=== PATIENT | male | born 1950 | race Caucasian/White ===

== ENCOUNTER → 2016-12-20 16:22 | Outpatient (CLI) | payer MEDICARE | END | disposition home or self-care (01) | LOC: D.CT 16:22 | DX: R10.9 Unspecified abdominal pain (principal); K72.90 Hepatic failure, unspecified without coma ==

== ENCOUNTER 2016-12-25 14:18 | Day surgery (SDC) | payer MEDICARE ==
[~2016-12-25] VITALS: Ht 177.8 cm; Wt 72.7 kg
--- NOTE | ~2016-12-25 | OP ---
PATIENT NAME: ANNEMARIE PIMENTEL MEDICAL RECORD: [id number] :51 LOCATION:[facility] ADMISSION DATE: SURGEON: TE WILKINS DO DATE OF OPERATION: 12/25/2016 PROCEDURE: ERCP with sphincterotomy and plastic stent placement. SCOPE: AirXP video side-viewing duodenoscope. MEDICATIONS: General anesthesia with propofol given per anesthesia. The patient also received 1 gram of ancef prior to sphincterotomy and 2 units of FFP for an elevated INR of 2.1. ESTIMATED BLOOD LOSS: Minimal. COMPLICATIONS: None. DESCRIPTION OF PROCEDURE: The patient was started under general anesthesia and intubated. He was placed in a prone position. The endoscope was advanced under direct visualization through the mouth to the second portion of the duodenum where the ampulla was identified. Deep biliary cannulation was achieved with ease. Initial cholangiogram revealed a dilated duct involving the proximal half of the common bile duct. The duct was approximately 18 mm or greater in diameter. There was a filling defect, which was felt to be related to the heterogenous pancreatic mass seen on recent imaging involving the distal bile duct. It spanned a segment of approximately 2-3 cm in length. Because of the patient's elevated INR, there was no dilatation balloon used, and no biliary brushings were obtained. A small sphincterotomy was performed using ____ cut. There was some oozing of blood, but no significant bleeding. After this, a 10-Hungarian x 7 cm straight plastic stent was placed in the common bile duct with the proximal part of the stent within the bile duct above the obstruction and the distal portion of the stent in the duodenum. The scope was then withdrawn from the patient. The patient tolerated the procedure well and there were no complications. IMPRESSION: Biliary obstruction secondary to heterogenous pancreas mass, suspicious for pancreatic adenocarcinoma. PLAN AND RECOMMENDATIONS: 1. Proceed with percutaneous biopsy as planned. 2. Consider ultrasound-guided paracentesis with fluid sent for cytology. If this was positive, this would confirm stage IV disease and could provide the diagnosis potentially. 3. Pending plans for the future, this plastic stent will need to be removed or replaced within 3 months, and preferably by 2 months. Consideration should be given to placing a metallic stent for permanent placement and stenting of the bile duct. If another ERCP is planned, an INR should be checked the day prior to the procedure, so that FFP and vitamin K could be given if indicated. TRANSINT:[id number] Voice Confirmation ID: [id number] DOCUMENT ID: [id number] OPERATIVE REPORT [id number] ANNEMARIE PIMENTEL NATHAN A DO CC: [id number] DICTATION DATE: 12/25/161745 GUARD CAPTAIN: 12/26/164 [facility] 12/25/16 [place] [id number] [place] [id number]
[2016-12-25 14:36] LABS: BASOPHILS 0.5 % (0-2); EOSINOPHILS 1.4 % (0-7); HEMATOCRIT 39.4 % (42.0-54.0); IMMATURE GRANULOCYTES 1.1 % (0-5); LYMPHOCYTES 10.4 % (15-50); MCH 33.2 pg (26.0-34.0); MCHC 35.5 g/dL (31.0-37.0); MCV 93.4 fL (80.0-100.0); MEAN PLATELET VOLUME 11.2 fL (7.4-10.4); MONOCYTES 9.1 % (2-11); NEUTROPHILS 77.5 % (40-80); PLATELET COUNT 183 10x3/uL (130-400); RBC 4.22 10x6/uL (4.20-6.10); RDW 21.9 % (11.5-14.5); WBC 9.2 10x3/uL (4.8-10.8)
[2016-12-25 14:47] LABS: INR 2.09 (0.85-1.17); PROTIME 23.6 SECONDS (11.6-15.0)
[2016-12-25 15:02] LABS: ALBUMIN 2.2 g/dL (3.4-5.0); ALKALINE PHOSPHATASE 260 U/L (46-116); ALT (SGPT) 98 U/L (10-68); CALC OSMOLALITY 285 mosm/kg (275-300); CALCIUM 9.1 mg/dL (8.5-10.1); CARBON DIOXIDE 25.2 mmol/L (21.0-32.0); CHLORIDE - SERUM 107 mmol/L (98-107); CREATININE - SERUM 0.8 mg/dL (0.6-1.3); GLUCOSE 83 mg/dL (74-106); POTASSIUM - SERUM 3.6 mmol/L (3.5-5.1); SODIUM 144 mmol/L (136-145); UREA NITROGEN 12 mg/dL (7-18); eGFR NON AFRICAN AMERICAN > 90 mL/min (90-120)
[2016-12-25 15:07] LABS: BILIRUBIN - TOTAL 35.02 mg/dL (0.2-1.3); PROTEIN - SERUM 5.9 g/dL (6.4-8.2)
[2016-12-25] MEDS ORDERED: K-TAB10 MEQ PO (15:22)
[2016-12-25] MEDS ORDERED: HUMULIN 70100 UNIT/1 SC (15:23)
[2016-12-25] MEDS ORDERED: TEMOVATE 0.05%15 G1 TOPICAL (15:24)
[2016-12-25 15:33] VITALS: BP 115/63; Ht 177.8 cm; Wt 72.7 kg
--- NOTE | 2016-12-25 17:19 | NUR ---
1615 BLOOD CONSENT OBTAINED EXPLAINED RWEASON FOR FFP INR ELEVATED SND EXPLAINED S/S OF BLOOD REctions noted.iv atarted in lt arm 20mgauge no redness or selling. ancef started 1620.
--- NOTE | 2016-12-25 17:41 | NUR ---
1708 FFP CHECKED BY 2 NURSES AND INFUSING VIA LEFT ARM NO REDNESS OR SWELLING.
--- NOTE | 2016-12-25 17:41 | NUR ---
1723 1ST UNIT OF FFP COMPLETED. NO REDNESS OR SWELLING.
--- NOTE | 2016-12-25 17:42 | NUR ---
173 2ND UNIT OF FFP STARTRED LEFT ARM NO REDNESS OR SWELLING.
--- NOTE | 2016-12-25 17:42 | NUR ---
8660 10 BY 7 STENT APPLIED.
--- NOTE | 2016-12-25 18:40 | NUR ---
1750 PT INTUBATED AND TO RECOVERY FFP INFUSING NO S/S OF BLOOD REACTIONS. IV LEFT ARM NO RENESS OR SWELLING.
== END 2016-12-25 19:50 | disposition home or self-care (01) ==
LOC: D.OPS 14:18
PROVIDERS: Internal Medicine Gastroenterology
DX: K86.89 Other specified diseases of pancreas (principal); K83.1 Obstruction of bile duct

== ENCOUNTER 2017-01-01 06:26 | Outpatient (CLI) | payer MEDICARE ==
[~2017-01-01] VITALS: Ht 177.8 cm; Wt 72.7 kg
[~2017-01-01 06:26] MED LIST: HUMULIN 70100 UNIT/1 SC; K-TAB10 MEQ PO; TEMOVATE 0.05%15 G1 TOPICAL
[2017-01-01 07:12] VITALS: BP 117/61; Ht 177.8 cm; Wt 72.7 kg
[2017-01-01 07:30] LABS: APTT 40.5 SECONDS (22.8-39.4); INR 1.46 (0.85-1.17); PROTIME 17.6 SECONDS (11.6-15.0)
[2017-01-01 07:31] LABS: CALC OSMOLALITY 279 mosm/kg (275-300); CALCIUM 8.3 mg/dL (8.5-10.1); CARBON DIOXIDE 22.5 mmol/L (21.0-32.0); CHLORIDE - SERUM 108 mmol/L (98-107); CREATININE - SERUM 0.7 mg/dL (0.6-1.3); POTASSIUM - SERUM 3.3 mmol/L (3.5-5.1); SODIUM 139 mmol/L (136-145); UREA NITROGEN 12 mg/dL (7-18); eGFR NON AFRICAN AMERICAN > 90 mL/min (90-120)
[2017-01-01 07:36] LABS: BASOPHILS 0.2 % (0-2); HEMATOCRIT 33.2 % (42.0-54.0); HEMOGLOBIN 11.4 g/dL (13.5-17.5); IMMATURE GRANULOCYTES 0.7 % (0-5); LYMPHOCYTES 9.9 % (15-50); MCH 33.6 pg (26.0-34.0); MCHC 34.3 g/dL (31.0-37.0); MCV 97.9 fL (80.0-100.0); MONOCYTES 8.7 % (2-11); NEUTROPHILS 79.5 % (40-80); RBC 3.39 10x6/uL (4.20-6.10); RDW 21.2 % (11.5-14.5)
[2017-01-01 07:37] LABS: GLUCOSE 133 mg/dL (74-106)
[2017-01-01 07:38] LABS: PLATELET COUNT 144 10x3/uL (130-400)
--- NOTE | 2017-01-01 11:26 | NUR ---
1100--ALL VITAL SIGNS CHARTED ON POST PROCEDURE VITAL SIGN SHEET ON CHART. CONSTANCE HIGGINBOTHAM
--- NOTE | 2017-01-01 17:14 | NUR ---
1400--IV DC'D, PT UP TO DRESS. CONSTANCE HIGGINBOTHAM 8224--DISCHARGE INSTRUCTIONS GIVEN, PT VERBALIZES UNDERSTANDING. PT OFF UNIT VIA WC. CONSTANCE HIGGINBOTHAM
== END 2017-01-01 14:30 | disposition home or self-care (01) ==
LOC: D.OPS 06:26 → D.RAD 09:00 → D.OPS 09:00
PROVIDERS: Radiology Diagnostic Radiology
DX: K86.89 Other specified diseases of pancreas (principal)

== ENCOUNTER → 2017-01-15 07:32 | Outpatient (CLI) | payer MEDICARE, MEDICAID ==
[2017-01-01 07:12] VITALS: BMI 23.0
== END | disposition home or self-care (01) ==
LOC: D.LAB 07:32
DX: R63.4 Abnormal weight loss (principal)

== ENCOUNTER → 2017-02-25 08:27 | Outpatient (CLI) | payer MEDICARE, MEDICAID ==
[2017-01-01 07:12] VITALS: BMI 23.0
[2017-02-25 09:12] LABS: INR 1.14 (0.85-1.17); PROTIME 14.5 SECONDS (11.6-15.0)
[2017-02-26 07:26] LABS: HEPATITIS C ANTIBODY >11.0 (0.0-0.9)
== END | disposition home or self-care (01) ==
LOC: D.LAB 08:00
PROVIDERS: Internal Medicine Gastroenterology
DX: K74.60 Unspecified cirrhosis of liver (principal)

== ENCOUNTER 2017-02-26 12:43 | Day surgery (SDC) | payer MEDICARE, MEDICAID ==
[~2017-02-26] VITALS: Ht 177.8 cm; Wt 70.5 kg
[2017-02-26 13:19] LABS: HEMATOCRIT 42.4 % (42.0-54.0); HEMOGLOBIN 14.4 g/dL (13.5-17.5); MCH 34.4 pg (26.0-34.0); MCV 101.2 fL (80.0-100.0); MEAN PLATELET VOLUME 10.2 fL (7.4-10.4); RBC 4.19 10x6/uL (4.20-6.10); RDW 12.5 % (11.5-14.5); WBC 6.3 10x3/uL (4.8-10.8)
[2017-02-26 13:28] VITALS: BP 119/70; Ht 177.8 cm; Wt 70.5 kg
--- NOTE | 2017-02-26 15:32 | NUR ---
ASKED ABOUT ANTIBIOTICS STATED NOT NEEDED.
--- NOTE | 2017-02-26 16:15 | NUR ---
10F X7 STENT REMOVED AND REPLACED, DYE 28 MLS AND 1.20 SEC XRAY TIME.
--- NOTE | 2017-02-26 16:25 | NUR ---
1622 BACK FROM ERCP STENT EXCHANGED. ALERT AND VERBALLY RESPONSIVE. RESP NONLABORED AND V/S STABLE.
--- NOTE | 2017-02-26 16:57 | NUR ---
1652 TOLERAYING FULL LIQUIDS.
--- NOTE | 2017-02-26 17:23 | NUR ---
1721 DR. WILKINS TALKING TO PATIENT. WENT OVER DISCHARGE INSTRUCTIONS. IV DCD CATHETER INTACT.
--- NOTE | 2017-02-26 17:23 | NUR ---
1725 TO HOME VIA W/C WITH FAMILY,
--- NOTE | 2017-02-27 13:06 | OP ---
PATIENT NAME: ANNEMARIE PIMENTEL MEDICAL RECORD: [id number] :51 LOCATION:[facility] ADMISSION DATE: SURGEON: TE WILKINS DO OPERATION DATE: 02/26/17 DATE OF OPERATION: 02/26/2017 PROCEDURE: ERCP with stent exchange. INDICATIONS FOR PROCEDURE: The patient has a fibrotic mass within his pancreas which is causing him biliary obstruction. This was a procedure to exchange his straight plastic stent which is allowing flow of bile to the common bile duct. SCOPE: Cloudadmin video side-viewing duodenoscope. MEDICATIONS: Propofol IV per anesthesia. Please see anesthesia report for exact medications. ESTIMATED BLOOD LOSS: Less than 2 mL. COMPLICATIONS: None. FINDINGS: Informed consent was given. The patient was made comfortable with the above medication. After reaching an adequate level of sedation by slow IV push, the patient was placed semi prone on the fluoroscopy stable. A side-viewing duodenoscope was then placed under direct visualization through the mouth and advanced to the second portion of the duodenum where the ampulla with the previously placed stent was identified. 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 A snare was placed around the stent and the stent was pulled out of the duct and removed through the mouth with the scope. The scope was then advanced back down through the mouth under direct visualization to the second portion of the duodenum where the ampulla was identified again. A sphincterotome was used to gain access to the common bile duct. Again, there was a stricture related to the patient's fibrotic mass within his pancreas which spanned approximately 2-3 cm in length. It did make passage of the sphincterotome and guidewire somewhat difficult, but deep biliary cannulation and catheter passage was achieved after approximately 10 minutes of time. Once the guidewire was in place the sphincterotome was removed and a 10 Guamanian x 7 cm straight plastic stent was placed over the guidewire and into the common bile duct. The proximal part of the stent is above the fibrotic mass stricture and the distal stent is within the duodenum. The scope was withdrawn from the patient. The patient tolerated the procedure well and there were no complications. IMPRESSION: 1. Fibrotic mass within the head of the pancreas causing biliary obstruction. PLAN AND RECOMMENDATIONS: 1. Discharge home when recovery parameters are met. 2. The patient is scheduled with Dr. Quintero at [facility] for endoscopic ultrasound evaluation and repeat biopsies if indicated. 3. A decision will have to be made in the near future regarding course of action to deal with this fibrotic mass. 4. Options include repeated ERCPs for plastic stent replacement versus OPERATIVE REPORT [id number] ANNEMARIE PIMENTEL permanent metal stent placement versus possibly a pancreaticoduodenectomy for definitive therapy of this condition. We will await findings at time of endoscopic ultrasound for further planning. TRANSINT:[id number] Voice Confirmation ID: [id number] DOCUMENT ID: [id number] TE WILKINS DO at 1306 CC: [id number] DICTATION DATE: 02/26/17 1624 DAY CARE AIDE: 02/27/17 0029 [facility] 02/26/17 [place] [id number] [place] [address]
== END 2017-02-26 17:24 | disposition home or self-care (01) ==
LOC: D.OPS 12:43
PROVIDERS: Anesthesiology
DX: K86.89 Other specified diseases of pancreas (principal); Z01.812 Encounter for preprocedural laboratory examination; K83.1 Obstruction of bile duct

== ENCOUNTER → 2017-03-06 07:23 | Outpatient (CLI) | payer MEDICARE, MEDICAID ==
[2017-02-26 13:28] VITALS: BMI 22.2
== END ==
LOC: D.LAB 07:17
PROVIDERS: Internal Medicine Gastroenterology
DX: R79.9 Abnormal finding of blood chemistry, unspecified (principal)

== ENCOUNTER 2017-05-22 11:33 | Emergency (ER) | payer MEDICARE, MEDICAID ==
[2017-02-26 13:28] VITALS: BMI 22.2
[2017-05-22 12:46] LABS: BASOPHILS 0.3 % (0-2); EOSINOPHILS 1.9 % (0-7); HEMATOCRIT 35.2 % (42.0-54.0); HEMOGLOBIN 11.7 g/dL (13.5-17.5); IMMATURE GRANULOCYTES 0.4 % (0-5); LYMPHOCYTES 10.6 % (15-50); MCH 31.7 pg (26.0-34.0); MCHC 33.2 g/dL (31.0-37.0); MCV 95.4 fL (80.0-100.0); MEAN PLATELET VOLUME 9.8 fL (7.4-10.4); NEUTROPHILS 78.8 % (40-80); PLATELET COUNT 121 10x3/uL (130-400); RBC 3.69 10x6/uL (4.20-6.10); RDW 13.3 % (11.5-14.5); WBC 7.9 10x3/uL (4.8-10.8)
[2017-05-22 12:52] LABS: ALBUMIN 2.9 g/dL (3.4-5.0); ALKALINE PHOSPHATASE 76 U/L (46-116); ALT (SGPT) 22 U/L (10-68); BILIRUBIN - TOTAL 1.49 mg/dL (0.2-1.3); CALC OSMOLALITY 282 mosm/kg (275-300); CALCIUM 8.8 mg/dL (8.5-10.1); CARBON DIOXIDE 26.6 mmol/L (21.0-32.0); CHLORIDE - SERUM 103 mmol/L (98-107); CREATININE - SERUM 0.8 mg/dL (0.6-1.3); GLUCOSE 160 mg/dL (74-106); POTASSIUM - SERUM 3.8 mmol/L (3.5-5.1); PROTEIN - SERUM 6.9 g/dL (6.4-8.2); SODIUM 139 mmol/L (136-145); UREA NITROGEN 17 mg/dL (7-18); eGFR NON AFRICAN AMERICAN > 90 mL/min (90-120)
[2017-05-22 12:54] LABS: AMYLASE - SERUM 23 U/L (25-115); CREATINE KINASE 54 UL (21-232)
[2017-05-22 13:02] LABS: LIPASE 43 U/L (73-393); TROPONIN-I < 0.017 ng/mL (0.000-0.060)
[2017-05-29] MEDS ORDERED: MORPHINE SULFAT15 M4 PO (16:26)
[2017-05-29] MEDS ORDERED: NOVOLIN 70/30 110 ML SC (16:26)
[2017-05-29] MEDS ORDERED: PROTONIX40 MG PO (16:26)
== END 2017-05-22 14:03 | disposition home or self-care (01) ==
LOC: D.ER 11:33
PROVIDERS: Emergency Medicine
DX: K29.00 Acute gastritis without bleeding (principal)

== ENCOUNTER → 2017-05-28 14:26 | Outpatient (CLI) | payer MEDICARE, MEDICAID ==
[2017-02-26 13:28] VITALS: BMI 22.2
[~2017-05-28 14:26] MED LIST changes: +CREON DR 24,001 EACH PO; +DILAUDID2 MG PO; +MORPHINE SULFAT15 M4 PO; +MORPHINE SULFAT30 M4 PO; +NOVOLIN 70/30 110 ML SC; +OXYCODONE HCL5 MG PO; +PROTONIX40 MG PO; +THORAZINE25 MG PO
== END | disposition home or self-care (01) ==
LOC: D.LAB 14:26
DX: C25.9 Malignant neoplasm of pancreas, unspecified (principal)

== ENCOUNTER 2017-06-02 07:55 | Day surgery (SDC) | payer MEDICARE, MEDICAID ==
[~2017-06-02 07:55] MED LIST changes: -CREON DR 24,001 EACH PO; -DILAUDID2 MG PO; -MORPHINE SULFAT30 M4 PO; -OXYCODONE HCL5 MG PO; -THORAZINE25 MG PO
[2017-06-02 08:31] LABS: BASOPHILS 0.4 % (0-2); EOSINOPHILS 1.4 % (0-7); HEMATOCRIT 37.9 % (42.0-54.0); HEMOGLOBIN 12.5 g/dL (13.5-17.5); IMMATURE GRANULOCYTES 0.2 % (0-5); LYMPHOCYTES 8.2 % (15-50); MCH 32.2 pg (26.0-34.0); MCV 97.7 fL (80.0-100.0); MEAN PLATELET VOLUME 10.3 fL (7.4-10.4); MONOCYTES 9.1 % (2-11); NEUTROPHILS 80.7 % (40-80); RBC 3.88 10x6/uL (4.20-6.10); RDW 14.4 % (11.5-14.5); WBC 5.7 10x3/uL (4.8-10.8)
[2017-06-02 08:45] LABS: PLATELET COUNT 148 10x3/uL (130-400)
[2017-06-02 08:49] LABS: APTT 34.9 SECONDS (22.8-39.4)
[2017-06-02 08:50] LABS: INR 1.15 (0.85-1.17); PROTIME 14.6 SECONDS (11.6-15.0)
[2017-06-02 09:28] LABS: CALC OSMOLALITY 283 mosm/kg (275-300); CALCIUM 9.4 mg/dL (8.5-10.1); CARBON DIOXIDE 28.1 mmol/L (21.0-32.0); CHLORIDE - SERUM 104 mmol/L (98-107); CREATININE - SERUM 0.7 mg/dL (0.6-1.3); GLUCOSE 145 mg/dL (74-106); POTASSIUM - SERUM 4.2 mmol/L (3.5-5.1); SODIUM 141 mmol/L (136-145); UREA NITROGEN 12 mg/dL (7-18); eGFR NON AFRICAN AMERICAN > 90 mL/min (90-120)
[2017-06-02] MEDS ORDERED: THORAZINE25 MG PO (09:34)
[2017-06-02] MEDS ORDERED: CREON DR 24,001 EACH PO (09:35)
[2017-06-02 10:14] VITALS: BP 110/67; BMI 21.5
[2017-06-02] MEDS ORDERED: OXYCODONE HCL5 MG PO (13:03)
--- NOTE | 2017-06-02 14:44 | NUR ---
1415-IV D/C'D, PT TOLERATED. CATHETER INTACT. 1430- DISCHARGE INSTRUCTIONS COMPLETED. PT VERBALIZED UNDERSTANDING. PAPERWORK SIGNED. 1435- PT DISCHARGED VIA WHEELCHAIR.
== END 2017-06-02 14:35 | disposition home or self-care (01) ==
LOC: D.OPS 07:55 → D.PAN 10:15 → D.OPS 10:15
PROVIDERS: Anesthesiology
DX: C25.9 Malignant neoplasm of pancreas, unspecified (principal); E11.9 Type 2 diabetes mellitus without complications; Z01.812 Encounter for preprocedural laboratory examination

== ENCOUNTER 2017-06-28 05:11 | Inpatient (IN) | payer MEDICARE, MEDICAID ==
[~2017-06-28] VITALS: Ht 177.8 cm; Wt 59.4 kg
[~2017-06-28 05:11] MED LIST changes: +CREON DR 24,001 EACH PO; +OXYCODONE HCL5 MG PO; +THORAZINE25 MG PO
[2017-06-28 05:59] LABS: EOSINOPHILS 4.3 % (0-7); HEMATOCRIT 36.6 % (42.0-54.0); HEMOGLOBIN 12.9 g/dL (13.5-17.5); LYMPHOCYTES 29.2 % (15-50); MCH 31.5 pg (26.0-34.0); MCHC 35.2 g/dL (31.0-37.0); MCV 89.5 fL (80.0-100.0); MEAN PLATELET VOLUME 10.3 fL (7.4-10.4); MONOCYTES 38.8 % (2-11); NEUTROPHILS 26.7 % (40-80); PLATELET COUNT 125 10x3/uL (130-400); RBC 4.09 10x6/uL (4.20-6.10); RDW 13.3 % (11.5-14.5); WBC 2.1 10x3/uL (4.8-10.8)
[2017-06-28 06:18] LABS: ALBUMIN 3.5 g/dL (3.4-5.0); ALKALINE PHOSPHATASE 83 U/L (46-116); ALT (SGPT) 40 U/L (10-68); AMYLASE - SERUM 78 U/L (25-115); BILIRUBIN - TOTAL 1.45 mg/dL (0.2-1.3); CARBON DIOXIDE 21.7 mmol/L (21.0-32.0); CHLORIDE - SERUM 96 mmol/L (98-107); PROTEIN - SERUM 7.9 g/dL (6.4-8.2); SODIUM 132 mmol/L (136-145); UREA NITROGEN 20 mg/dL (7-18); eGFR NON AFRICAN AMERICAN 80 mL/min (90-120)
[2017-06-28 06:19] LABS: LIPASE 38 U/L (73-393)
[2017-06-28 06:20] LABS: CALC OSMOLALITY 265 mosm/kg (275-300); POTASSIUM - SERUM 2.8 mmol/L (3.5-5.1)
[2017-06-28 06:21] LABS: GLUCOSE 69 mg/dL (74-106)
--- NOTE | 2017-06-28 08:59 | NUR ---
REC'D IN ROOM 2203 AWAKE AND ALERT. RESP EVEN AND UNLABORED WITN NO DISTRESS NOTED. CAN EXPRESS NEEDS AND WANTS. ASSESSMENT COMPLETED. NO C/O NOTED OR VOICED AT THIS TIME. C/L N REACH AT BEDSIDE.
[2017-06-28 10:40] VITALS: BP 123/73; BMI 18.8
--- NOTE | 2017-06-28 10:52 | NUR ---
ASSESSMENT PER FLOW SHEET.PT WITHOUT DISTRESS.REDNESS NOTED TO BUTTOCKS WITH ONE SMALL SCABBED AREA TO BUTTOCKS.SCABS NOTED TO BODY SPORATIC ,BUT MAINLY ON HANDS AND ARMS.RED SPLOTCHES NOTED TO ARMS ALSO.PT STATES ABLE TO EAT THIS AM WITHOUT NAUSEA.LEFT PORT HAS BANDAGE IN PLACE AND HAS NOT BEEN ACCESSED.CALL LIGHT IN REACH.MONITOR FOR NEEDS
[2017-06-28 12:55] VITALS: BP 118/74
[2017-06-28 16:50] VITALS: BP 126/77
--- NOTE | 2017-06-28 19:00 | NUR ---
REPORT RECEIVED AND CARE OF PT ASSUMED. PT LYING IN SEMI LE'S POSITION WITH EYES CLOSED AND EASY RESPIRATIONS. IV IN LEFT FA PATENT WITH NS W/ 40 KCL INFUSING AT 125. WILL MONITOR CLOSELY FOR NEEDS. CALL LIGHT WITHIN REACH.
--- NOTE | 2017-06-28 19:30 | NUR ---
PT WAS MEDICATED WITH DILAUDID 1 MG PER ORDER FOR ABD PAIN. C./L IN REACH AT BEDSIDE.
[2017-06-28 20:00] VITALS: BP 131/76
--- NOTE | 2017-06-28 20:46 | NUR ---
HS MEDICATIONS GIVEN TO INCLUDE DILAUDID IVP FOR PAIN, PER PRN ORDER. WILL MONITOR FOR EFFECTIVENESS.
[2017-06-29] VITALS: BP 108/67
[2017-06-29 04:00] VITALS: BP 140/85
--- NOTE | 2017-06-29 07:30 | NUR ---
SLEEPING WITHOUT SIGNS OF DISTRESS.CALL LIGHT IN REACH
--- NOTE | 2017-06-29 07:47 | NUR ---
LYING IN BED EYES CLOSED RESTING QUIETLY. NO S/SX OF ACUTE DISTRESS NOTED. CALL LIGHT AND WATER WITHIN REACH, BED LOW, SR X2. WILL CONTINUE TO MONITOR
[2017-06-29 08:42] VITALS: BP 117/62
[2017-06-29 11:31] LABS: HEMATOCRIT 33.2 % (42.0-54.0); HEMOGLOBIN 11.3 g/dL (13.5-17.5); MCH 31.7 pg (26.0-34.0); MEAN PLATELET VOLUME 9.7 fL (7.4-10.4); RBC 3.57 10x6/uL (4.20-6.10); RDW 14.1 % (11.5-14.5)
[2017-06-29 11:32] LABS: PLATELET COUNT 96 10x3/uL (130-400); WBC 4.8 10x3/uL (4.8-10.8)
[2017-06-29 11:51] LABS: ALBUMIN 2.8 g/dL (3.4-5.0); ALKALINE PHOSPHATASE 71 U/L (46-116); ALT (SGPT) 25 U/L (10-68); BILIRUBIN - TOTAL 1.08 mg/dL (0.2-1.3); CALC OSMOLALITY 266 mosm/kg (275-300); CALCIUM 8.3 mg/dL (8.5-10.1); CARBON DIOXIDE 21.8 mmol/L (21.0-32.0); CHLORIDE - SERUM 104 mmol/L (98-107); CREATININE - SERUM 0.8 mg/dL (0.6-1.3); GLUCOSE 57 mg/dL (74-106); PROTEIN - SERUM 6.5 g/dL (6.4-8.2); SODIUM 135 mmol/L (136-145); UREA NITROGEN 9 mg/dL (7-18); eGFR NON AFRICAN AMERICAN > 90 mL/min (90-120)
[2017-06-29 12:15] LABS: EOSINOPHILS 8 % (0-7); LYMPHOCYTES 12 % (15-50); MONOCYTES 2 % (2-11); NEUTROPHILS 46 % (40-80); PLATELET ESTIMATE NORMAL; PLATELET MORPHOLOGY PLT CLUMPS PRESENT
--- NOTE | 2017-06-29 16:34 | NUR ---
LYING IN BED ON RIGHT SIDE IN POSITION C/O SHARP ABDOMINAL PAINS STATES THAT THE PAIN MEDS ARE NOT HELPING AND HE COULD BE AT HOME IN PAIN INSTEAD OF HERE. NO S/SX OF ACUTE DISTRESS NOTED. CALL LIGHT AND PERSONAL ITEMS WITHIN REACH, BED LOW AND SR X1. WILL CONTINUE TO MONITOR
--- NOTE | 2017-06-29 19:00 | NUR ---
REPORT RECEIVED AND CARE OF PT ASSUMED. PT LYING IN SUPINE POSITION WITH EYES CLOSED. IV IN LEFT FA PATENT WITH NS W/ 40 KCL INFUSING AT 125 ML / HR. WILL MONITOR CLOSLEY FOR NEEDS.
[2017-06-29 20:00] VITALS: BP 125/69
--- NOTE | 2017-06-29 20:39 | NUR ---
HS MEDICATIONS GIVEN TO INCLUDE DILAUDID PER PRN ORDER, PER REQUEST FOR PAIN. WILL CONTINUE TO MONITOR FOR NEEDS. CALL LIGHT WITHIN REACH.
--- NOTE | 2017-06-29 21:42 | NUR ---
PRE MEDICATION PREDNISONE 50 MG PO GIVEN PER ORDER.
[2017-06-30] VITALS: BP 130/70
--- NOTE | 2017-06-30 | NUR ---
NPO STATUS BEGINS NOW.
[2017-06-30 04:00] VITALS: BP 102/60
--- NOTE | 2017-06-30 04:45 | NUR ---
PRE MEDICATION FOR CT SCAN GIVEN...50 MG PREDNISONE PO.
--- NOTE | 2017-06-30 05:55 | NUR ---
FSBS 123 THIS AM, REQUIRING NO COVERAGE PER SLIDING SCALE.
--- NOTE | 2017-06-30 07:00 | NUR ---
REPORT RECIEVED ASSUMED CARE. PATIENT IN BED WITH IV INTACT. NO COMPLAINTS AT THIS TIME. CALL LIGHT WITHIN REACH.
[2017-06-30 07:39] VITALS: BP 102/58
[2017-06-30 08:52] LABS: BASOPHILS 0.2 % (0-2); EOSINOPHILS 0 % (0-7); HEMATOCRIT 37.3 % (42.0-54.0); HEMOGLOBIN 12.3 g/dL (13.5-17.5); IMMATURE GRANULOCYTES 0.8 % (0-5); LYMPHOCYTES 8.8 % (15-50); MCH 31.1 pg (26.0-34.0); MCV 94.4 fL (80.0-100.0); MONOCYTES 8.1 % (2-11); NEUTROPHILS 82.1 % (40-80); PLATELET COUNT 97 10x3/uL (130-400); RBC 3.95 10x6/uL (4.20-6.10); RDW 14.6 % (11.5-14.5); WBC 4.8 10x3/uL (4.8-10.8)
[2017-06-30 09:08] LABS: ALBUMIN 2.8 g/dL (3.4-5.0); ALKALINE PHOSPHATASE 79 U/L (46-116); ALT (SGPT) 24 U/L (10-68); BILIRUBIN - TOTAL 0.98 mg/dL (0.2-1.3); CALCIUM 8.7 mg/dL (8.5-10.1); CARBON DIOXIDE 19.1 mmol/L (21.0-32.0); CHLORIDE - SERUM 103 mmol/L (98-107); CREATININE - SERUM 0.8 mg/dL (0.6-1.3); PROTEIN - SERUM 6.8 g/dL (6.4-8.2); SODIUM 137 mmol/L (136-145); UREA NITROGEN 11 mg/dL (7-18); eGFR NON AFRICAN AMERICAN > 90 mL/min (90-120)
[2017-06-30 09:11] LABS: CALC OSMOLALITY 275 mosm/kg (275-300); GLUCOSE 150 mg/dL (74-106); POTASSIUM - SERUM 5.1 mmol/L (3.5-5.1)
[2017-06-30 11:29] VITALS: BP 114/66
[2017-06-30 12:23] VITALS: Ht 177.8 cm; Wt 59.4 kg
[2017-06-30 16:14] VITALS: BP 140/70
--- NOTE | 2017-06-30 18:55 | NUR ---
PATIENT IN BED WITH IV INTACT. NO COMPLAINTS. CALL LIGHT WITHIN REACH.
[2017-06-30 20:00] VITALS: BP 125/69
--- NOTE | 2017-06-30 20:10 | NUR ---
PRN DILAUDID ADMINISTERED AT THIS TIME. PT STATES PAIN 10/10 IN HIS BACK. WILL CONTINUE WITH PLAN OF CARE.
--- NOTE | 2017-06-30 22:28 | NUR ---
PT C/O IV LEAKING, UNABLE TO FLUSH. REMOVED WITH CATH TIP INTACT. PT ASKING TO TAKE A SHOWER AT THIS TIME. WILL RESITE IV AFTERWARDS. PT STATES THAT THE PAIN MEDICAITON HE HAS BEEN RECEIVING IS NOT RELIEVING HIS PAIN.
[2017-07-01 04:00] VITALS: BP 115/47
--- NOTE | 2017-07-01 04:03 | NUR ---
IV 22G RESITED TO LEFT FOREARM X1 ATTEMPT WITH GOOD BLOOD RETURN. PT TOLERATED WELL. PRN DILAUDID ADMINISTERED AT THIS TIME. WILL CONTINUE TO MONITOR. CALL LIGHT IN REACH.
[2017-07-01 06:10] LABS: BASOPHILS 0.1 % (0-2); EOSINOPHILS 0.1 % (0-7); HEMOGLOBIN 10.7 g/dL (13.5-17.5); IMMATURE GRANULOCYTES 1.1 % (0-5); LYMPHOCYTES 10.5 % (15-50); MCH 31.8 pg (26.0-34.0); MCHC 34.5 g/dL (31.0-37.0); MEAN PLATELET VOLUME 9.8 fL (7.4-10.4); NEUTROPHILS 73.2 % (40-80); PLATELET COUNT 99 10x3/uL (130-400); RBC 3.37 10x6/uL (4.20-6.10); RDW 14.9 % (11.5-14.5)
[2017-07-01 06:30] LABS: WBC 9.8 10x3/uL (4.8-10.8)
[2017-07-01 06:37] LABS: ALBUMIN 2.6 g/dL (3.4-5.0); ALKALINE PHOSPHATASE 86 U/L (46-116); ALT (SGPT) 20 U/L (10-68); BILIRUBIN - TOTAL 0.69 mg/dL (0.2-1.3); CALC OSMOLALITY 275 mosm/kg (275-300); CALCIUM 8.6 mg/dL (8.5-10.1); CARBON DIOXIDE 23.3 mmol/L (21.0-32.0); CHLORIDE - SERUM 103 mmol/L (98-107); CREATININE - SERUM 0.9 mg/dL (0.6-1.3); GLUCOSE 145 mg/dL (74-106); POTASSIUM - SERUM 4.1 mmol/L (3.5-5.1); SODIUM 136 mmol/L (136-145); UREA NITROGEN 16 mg/dL (7-18); eGFR NON AFRICAN AMERICAN 90 mL/min (90-120)
--- NOTE | 2017-07-01 07:15 | NUR ---
REPORT RECIEVED ASSUMED CARE. PATIENT IN BED WITH IV INTACT. NO COMPLAINTS AT THIS TIME. CALL LIGHT WITHIN REACH.
[2017-07-01 09:27] VITALS: BP 114/65
[2017-07-01] MEDS ORDERED: MORPHINE SULFAT30 M4 PO (09:29)
[2017-07-01] MEDS ORDERED: DILAUDID2 MG PO (09:30)
--- NOTE | 2017-07-01 10:00 | NUR ---
Patient Name: ANNEMARIE PIMENTEL Admission Status: ER Accout number: [id number] Admission Date: 06-28-2017 : 1950 Admission Diagnosis: Attending: FABIANA ZARAGOZA Current LOS: 3 Anticipated DC Date: Planned Disposition: Home Primary Insurance: [employer] ADV Discharge Planning Comments: CM met with patient to assess discharge planning needs. Patient lives independently at home with his girlfriend Rosy, where he plans to return. Rosy will be his tractor driver home. Patient stated that his home is safe to return, he does not use any DME or HH services. He does not have any steps to enter in his home either. CM spoke about HH and he does not want to use at this time. CM will continue to follow and assist with discharge planning needs if needed. PCP: Sanna Caballero on [address] Rosy Davisjass ([phone]) Validation Engineer: Blanca Bonilla * Is the patient Alert and Oriented? Yes 0 * How many steps to enter\exit or inside your home? 0 0 * PCP Sanna Kebede APN 0 * Pharmacy [facility] [address] 0 * Preadmission Environment Home with Family 0 * ADLs Independent 0 * Equipment None 0 * List name and contact numbers for known caregivers / representatives who currently or will assist patient after discharge: Bibi Hutchinson (girlfriend) [phone] 0 * Community resources currently utilized None 0 * Additional services required to return to the preadmission environment? No 0 * Can the patient safely return to the preadmission environment? Yes 0 * Has this patient been hospitalized within the prior 30 days at any hospital? No 0 Grand Total: 0
--- NOTE | 2017-07-01 10:32 | NUR ---
PATIENT RECIEVED DISCHARGE INSTRUCTIONS. VERBALIZED UNDERSTANDING. QUESTIONS ANSWERED. IV REMOVED WITH CATH TIP INTACT. PRESCRIPTION GIVEN TO PATIENT. AWAITING TRANSPORTATION. CALL LIGHT WITHIN REACH.
== END 2017-07-01 11:58 | disposition home or self-care (01) | DRG 809 ==
LOC: D.ER 05:11 → D.MS 06:47
PROVIDERS: Emergency Medicine; Internal Medicine Hematology & Oncology; ADMIT Family Medicine Adult Medicine
DX: D70.9 Neutropenia, unspecified (principal); C25.9 Malignant neoplasm of pancreas, unspecified; E87.6 Hypokalemia; G89.29 Other chronic pain

== ENCOUNTER → 2017-07-03 08:49 | Outpatient (CLI) | payer MEDICARE, MEDICAID ==
[2017-06-30 12:23] VITALS: BMI 18.7
[~2017-07-03 08:49] MED LIST changes: +DILAUDID2 MG PO; +MORPHINE SULFAT30 M4 PO
== END | disposition home or self-care (01) ==
LOC: D.SP 07-02 12:00
DX: T82.868A Thrombosis due to vascular prosthetic devices, implants and grafts, initial encounter (principal); Z01.812 Encounter for preprocedural laboratory examination

== ENCOUNTER 2017-10-17 09:59 | Outpatient (CLI) | payer MEDICARE, MEDICAID ==
[~2017-10-17] VITALS: Ht 177.8 cm; Wt 59.1 kg
[2017-10-17 11:00] VITALS: BP 106/74; Ht 177.8 cm; Wt 59.1 kg
== END 2017-10-17 13:15 | disposition home or self-care (01) ==
LOC: D.OPS 09:59
DX: D69.6 Thrombocytopenia, unspecified (principal)

== ENCOUNTER 2017-10-20 10:36 | Outpatient (CLI) | payer MEDICARE, MEDICAID ==
[~2017-10-20] VITALS: Ht 177.8 cm; Wt 65.9 kg
[2017-10-20 12:10] VITALS: BP 102/56; Ht 177.8 cm; Wt 65.9 kg
== END 2017-10-20 12:43 | disposition home or self-care (01) ==
LOC: D.OPS 10:36
DX: C25.9 Malignant neoplasm of pancreas, unspecified (principal)

== ENCOUNTER 2017-10-21 10:32 | Outpatient (CLI) | payer MEDICARE, MEDICAID ==
[~2017-10-21] VITALS: Ht 177.8 cm; Wt 65.9 kg
[2017-10-21 12:09] VITALS: BP 109/74; Ht 177.8 cm; Wt 65.9 kg
== END 2017-10-21 13:55 | disposition home or self-care (01) ==
LOC: D.OPS 10:32
DX: D69.6 Thrombocytopenia, unspecified (principal); C25.9 Malignant neoplasm of pancreas, unspecified

== ENCOUNTER → 2017-11-04 09:40 | Outpatient (CLI) | payer MEDICARE, MEDICAID ==
[~2017-11-04] VITALS: Ht 177.8 cm; Wt 59.1 kg
[2017-11-04 10:22] VITALS: BP 141/79; Ht 177.8 cm; Wt 59.1 kg
== END | disposition home or self-care (01) ==
LOC: D.OPS 09:40
DX: D69.6 Thrombocytopenia, unspecified (principal)

== ENCOUNTER 2017-11-28 08:16 | Outpatient (CLI) | payer MEDICARE, MEDICAID ==
[~2017-11-28] VITALS: Ht 177.8 cm; Wt 60.9 kg
[2017-11-28 09:44] VITALS: BP 101/70; Ht 177.8 cm; Wt 60.9 kg
== END 2017-11-28 12:00 | disposition home or self-care (01) ==
LOC: D.OPS 08:16
DX: D69.6 Thrombocytopenia, unspecified (principal)

== ENCOUNTER 2017-12-10 08:38 | Outpatient (CLI) | payer MEDICARE, MEDICAID ==
[~2017-12-10] VITALS: Ht 177.8 cm; Wt 59.1 kg
[2017-12-10 09:13] VITALS: BP 112/64; Ht 177.8 cm; Wt 59.1 kg
== END 2017-12-10 11:15 ==
LOC: D.OPS 08:38
DX: C25.9 Malignant neoplasm of pancreas, unspecified (principal); D69.6 Thrombocytopenia, unspecified; Z01.812 Encounter for preprocedural laboratory examination

== ENCOUNTER 2017-12-23 10:39 | Outpatient (CLI) | payer MEDICARE, MEDICAID ==
[~2017-12-23] VITALS: Ht 177.8 cm; Wt 59.1 kg
[2017-12-23 11:22] VITALS: BP 124/73; Ht 177.8 cm; Wt 59.1 kg
== END 2017-12-23 15:30 | disposition home or self-care (01) ==
LOC: D.OPS 10:39
DX: D69.6 Thrombocytopenia, unspecified (principal)

== ENCOUNTER 2018-01-12 08:55 | Outpatient (CLI) | payer MEDICARE, MEDICAID ==
[~2018-01-12] VITALS: Ht 177.8 cm; Wt 63.6 kg
[2018-01-12 14:27] VITALS: BP 97/59; Ht 177.8 cm; Wt 63.6 kg
== END 2018-01-12 13:55 | disposition home or self-care (01) ==
LOC: D.OPS 08:55
DX: D69.6 Thrombocytopenia, unspecified (principal); C25.9 Malignant neoplasm of pancreas, unspecified; Z01.812 Encounter for preprocedural laboratory examination

== ENCOUNTER 2018-01-19 10:09 | Outpatient (CLI) | payer MEDICARE, MEDICAID ==
[2018-01-12 14:27] VITALS: BMI 20.1
== END 2018-01-19 14:31 | disposition home or self-care (01) ==
LOC: D.OPS 10:09
DX: D69.6 Thrombocytopenia, unspecified (principal); Z01.812 Encounter for preprocedural laboratory examination

== ENCOUNTER 2018-02-02 10:21 | Outpatient (CLI) | payer MEDICARE, MEDICAID ==
[~2018-02-02] VITALS: Ht 177.8 cm; Wt 60.9 kg
[2018-02-02 11:21] VITALS: Ht 177.8 cm; Wt 60.9 kg
== END 2018-02-02 14:05 | disposition home or self-care (01) ==
LOC: D.OPS 10:21
DX: D69.6 Thrombocytopenia, unspecified (principal); C25.9 Malignant neoplasm of pancreas, unspecified; Z01.812 Encounter for preprocedural laboratory examination

== ENCOUNTER 2018-02-09 10:11 | Outpatient (CLI) | payer MEDICARE, MEDICAID ==
[~2018-02-09] VITALS: Ht 177.8 cm; Wt 59.1 kg
[2018-02-09 12:43] VITALS: Ht 177.8 cm; Wt 59.1 kg
== END 2018-02-09 18:10 | disposition home or self-care (01) ==
LOC: D.OPS 10:11
DX: D69.6 Thrombocytopenia, unspecified (principal)

== ENCOUNTER 2018-03-02 10:57 | Outpatient (CLI) | payer MEDICARE, MEDICAID ==
[~2018-03-02] VITALS: Ht 177.8 cm; Wt 59.0 kg
[2018-03-02 13:26] VITALS: Ht 177.8 cm; Wt 59.0 kg
== END 2018-03-02 14:20 | disposition home or self-care (01) ==
LOC: D.OPS 10:57
DX: D69.6 Thrombocytopenia, unspecified (principal); Z01.812 Encounter for preprocedural laboratory examination

== ENCOUNTER 2018-03-23 10:18 | Outpatient (CLI) | payer MEDICARE, MEDICAID ==
[~2018-03-23] VITALS: Ht 177.8 cm; Wt 56.8 kg
[2018-03-23 13:04] VITALS: BP 106/39; Ht 177.8 cm; Wt 56.8 kg
== END 2018-03-23 14:57 | disposition home or self-care (01) ==
LOC: D.OPS 10:18
DX: D64.9 Anemia, unspecified (principal); Z01.812 Encounter for preprocedural laboratory examination

== ENCOUNTER 2018-03-30 19:32 | Emergency (ER) | payer MEDICARE, MEDICAID ==
[~2018-03-30] VITALS: Ht 177.8 cm; Wt 54.9 kg
[2018-03-30 19:42] VITALS: Ht 177.8 cm; Wt 54.9 kg
[2018-03-30 20:52] LABS: BASOPHILS 0.1 % (0-2); EOSINOPHILS 0 % (0-7); HEMATOCRIT 34.6 % (42.0-54.0); HEMOGLOBIN 11.7 g/dL (13.5-17.5); IMMATURE GRANULOCYTES 0.7 % (0-5); LYMPHOCYTES 2.4 % (15-50); MCH 33.1 pg (26.0-34.0); MCHC 33.8 g/dL (31.0-37.0); MCV 97.7 fL (80.0-100.0); MEAN PLATELET VOLUME 11.2 fL (7.4-10.4); MONOCYTES 2.5 % (2-11); NEUTROPHILS 94.3 % (40-80); RBC 3.54 10x6/uL (4.20-6.10); RDW 14.8 % (11.5-14.5); WBC 8.9 10x3/uL (4.8-10.8)
[2018-03-30 20:56] LABS: PLATELET COUNT 53 10x3/uL (130-400)
[2018-03-30 21:11] LABS: ALBUMIN 3.4 g/dL (3.4-5.0); ALKALINE PHOSPHATASE 395 U/L (46-116); ALT (SGPT) 60 U/L (10-68); BILIRUBIN - TOTAL 6.76 mg/dL (0.2-1.3); CALC OSMOLALITY 269 mosm/kg (275-300); CALCIUM 8.7 mg/dL (8.5-10.1); CARBON DIOXIDE 17.3 mmol/L (21.0-32.0); CHLORIDE - SERUM 100 mmol/L (98-107); CREATININE - SERUM 0.9 mg/dL (0.6-1.3); GLUCOSE 142 mg/dL (74-106); POTASSIUM - SERUM 3.1 mmol/L (3.5-5.1); PROTEIN - SERUM 7.9 g/dL (6.4-8.2); SODIUM 134 mmol/L (136-145); UREA NITROGEN 12 mg/dL (7-18); eGFR NON AFRICAN AMERICAN 90 mL/min (90-120)
[2018-03-30 21:54] LABS: AMYLASE - SERUM 32 U/L (25-115); CKMB 0.3 U/L (0.0-3.6); CREATINE KINASE 58 UL (21-232); TROPONIN-I < 0.017 ng/mL (0.000-0.060)
[2018-03-30 21:56] LABS: LIPASE 33 U/L (73-393)
[2018-03-30 22:16] LABS: PLATELET ESTIMATE DECREASED
[2018-03-31 02:08] VITALS: BP 154/77
== END 2018-03-31 02:08 | disposition other institution (70) ==
LOC: D.ER 19:32
PROVIDERS: Family Medicine
DX: C25.9 Malignant neoplasm of pancreas, unspecified (principal); E80.6 Other disorders of bilirubin metabolism; E11.9 Type 2 diabetes mellitus without complications

== ENCOUNTER 2018-04-03 12:47 | Emergency (ER) | payer MEDICARE, MEDICAID ==
[2018-04-03 12:58] VITALS: BP 53/30; Ht 177.8 cm
== END 2018-04-03 18:01 ==
LOC: D.ER 12:47
DX: I46.9 Cardiac arrest, cause unspecified (principal); C25.9 Malignant neoplasm of pancreas, unspecified; E11.9 Type 2 diabetes mellitus without complications